=== PATIENT | female | born 1995 | race African-American/Black ===

== ENCOUNTER 2019-08-20 11:49 | Emergency (ER) | payer MEDICAID, OTHER ==
[~2019-08-20] VITALS: Ht 157.5 cm; Wt 65.9 kg
[~2019-08-20 11:49] MED LIST: NOCURR
[2019-08-20] MEDS ORDERED: IBUPROFEN 600 MG TABLET PO ONE (13:15)
[2019-08-20 15:12] VITALS: BP 128/74
== END 2019-08-20 15:55 | disposition home or self-care (01) ==
LOC: EMS 11:50
DX: S93.491A Sprain of other ligament of right ankle, initial encounter (principal); F32.9 Major depressive disorder, single episode, unspecified; X50.1XXA Overexertion from prolonged static or awkward postures, initial encounter; Y93.89 Activity, other specified; Y92.89 Other specified places as the place of occurrence of the external cause; Y99.8 Other external cause status